=== PATIENT | female | born 1945 | race African-American/Black ===

== ENCOUNTER 2019-02-19 20:03 | Inpatient (IN) | payer MEDICARE, OTHER ==
[~2019-02-19] VITALS: Ht 152.4 cm; Wt 74.8 kg
--- NOTE | 2019-02-19 20:05 | NUR ---
ED Nurse Note: JAYSHREE MATT FROM HOME C/O ABDOMINAL PAIN X MORNING. HX HERNIA X2 YRS AND OVARIAN CA X1 YEAR. AO4. NAD. VSS. FAMILY AT BEDSIDE
--- NOTE | 2019-02-19 20:18 | NUR ---
ED Nurse Note: IV ACCESS ESTABLISHED. BLOOD COLLECTED; SENT DOWN TO LAB.
[2019-02-19] MEDS ORDERED: HUMULIN R100 UNIT/1 SUBQ (20:21)
[2019-02-19] MEDS ORDERED: METOPROLOL TART25 MG ORAL (20:21)
[2019-02-19] MEDS ORDERED: ASPIR 8181 MG ORAL (20:21)
[2019-02-19] MEDS ORDERED: DiphenhydrAMINE 50mg/ml Inj IVP ONE (20:30)
[2019-02-19] MEDS ORDERED: fentaNYL 100 mcg/2 mL IV ONE (20:30)
[2019-02-19] MEDS ORDERED: Isovue-300 100ml vial INJ PRN (20:30)
[2019-02-19] MEDS ORDERED: Metoclopramide 10mg/2ml Inj IVP ONE (20:30)
[2019-02-19 20:40] LABS: BASOPHILS % (AUTO) 0.8 % (0.0-2.0); EOSINOPHILS % (AUTO) 0.2 % (0.0-3.0); HEMATOCRIT 39.9 % (37.0-47.0); HEMOGLOBIN 13.6 G/DL (12.0-16.0); LYMPHOCYTES % (AUTO) 14.7 % (20.0-45.0); MEAN CORPUSCULAR VOLUME 87 FL (80-99); MONOCYTES % (AUTO) 3.3 % (1.0-10.0); NEUTROPHILS % (AUTO) 81.1 % (45.0-75.0); PLATELET COUNT 180 K/UL (150-450); RED BLOOD COUNT 4.61 M/UL (4.20-5.40); RED CELL DISTRIBUTION WIDTH 12.8 % (11.6-14.8); WHITE BLOOD COUNT 9.8 K/UL (4.8-10.8)
[2019-02-19 20:51] LABS: INR 1.1 (0.9-1.1)
[2019-02-19 20:53] LABS: ANION GAP 9 mmol/L (5-15); BLOOD UREA NITROGEN 24 mg/dL (7-18); CALCIUM 9.6 MG/DL (8.5-10.1); CARBON DIOXIDE 27 MMOL/L (21-32); CHLORIDE 97 MMOL/L (98-107); CREATININE 1.3 MG/DL (0.55-1.30); POTASSIUM 4.2 MMOL/L (3.5-5.1); SODIUM 133 MMOL/L (136-145)
[2019-02-19 21:00] LABS: ALANINE AMINOTRANSFERASE 31 U/L (12-78); ALBUMIN 3.7 G/DL (3.4-5.0); ALBUMIN/GLOBULIN RATIO 0.8 (1.0-2.7); ALKALINE PHOSPHATASE 147 U/L (46-116); ASPARTATE AMINO TRANSFERASE 21 U/L (15-37); BILIRUBIN,TOTAL 0.5 MG/DL (0.2-1.0)
--- NOTE | 2019-02-19 21:20 | NUR ---
ED Nurse Note: PT DOWN TO CT
--- NOTE | 2019-02-19 21:21 | Diagnostic Imaging Report ---
EXAM: XR Chest, 1 View CLINICAL HISTORY: Chest pain. TECHNIQUE: Frontal view of the chest. COMPARISON: No relevant prior studies available. FINDINGS: Lungs: Unremarkable. The lungs are clear. Pleural space: Unremarkable. No pneumothorax. Heart: Unremarkable. No cardiomegaly. Mediastinum: Unremarkable. Bones/joints: Mild degenerative changes of both shoulder joints. Vasculature: Mild calcification of the aortic arch. Tubes, lines and devices: Right-sided chest port with tip projecting over the cavoatrial junction. IMPRESSION: No acute findings.
--- NOTE | 2019-02-19 21:34 | NUR ---
ED Nurse Note: PT BACK FROM CT
[2019-02-19 21:40] VITALS: BP 157/84
--- NOTE | 2019-02-19 21:45 | NUR ---
ED Nurse Note: UNABLE TO COLLECT URINE. PT REFUSE STRAIGHT CATH. WILL ATTEMPT AT A LATER TIME.
--- NOTE | 2019-02-19 21:59 | Diagnostic Imaging Report ---
EXAM: CT Abdomen and Pelvis With Intravenous Contrast CLINICAL HISTORY: ABD PAIN TECHNIQUE: Axial computed tomography images of the abdomen and pelvis with intravenous contrast. CTDI is 17.20 mGy and DLP is 814 mGy-cm. One or more of the following dose reduction techniques were used: automated exposure control, adjustment of the mA and/or kV according to patient size, use of iterative reconstruction technique. COMPARISON: No relevant prior studies available. FINDINGS: Lung bases: Small calcified granuloma in the left lung base. ABDOMEN: Liver: Unremarkable. No mass. Gallbladder and bile ducts: The gallbladder is mildly distended with wall thickening and wall enhancement. There are gallstones, including within the gallbladder neck. Adjacent to the gallbladder fossa is a 4.6 x 2.10 cm cystic focus that measures greater Hounsfield units than simple fluid. No ductal dilation. Pancreas: Partial fatty replacement of the pancreas. Spleen: Unremarkable. No splenomegaly. Adrenals: Unremarkable. No mass. Kidneys and ureters: Right renal cortical scarring. No hydronephrosis. Stomach and bowel: Large midline anterior wall hernia containing a portion of the transverse colon. The transverse colon proximal to the hernia is dilated to 4.4 cm without evidence of obstruction. The portion of transverse colon within the hernia measures up to 3.9 cm with mild adjacent fat stranding and fluid. There is abrupt narrowing as it enters and exits the hernia. No mucosal thickening. PELVIS: Appendix: The appendix is mainly fluid-filled and mildly prominent, measuring up to 7 mm in diameter. There is no adjacent fat stranding. This is favored to represent a normal variant. Bladder: Mild diffuse bladder wall thickening is nonspecific but can be seen in cystitis. Reproductive: Unremarkable as visualized. ABDOMEN and PELVIS: Intraperitoneal space: Unremarkable. No free air. No significant fluid collection. Bones/joints: No acute fracture. Soft tissues: See above. Vasculature: Unremarkable. No abdominal aortic aneurysm. Lymph nodes: Unremarkable. No enlarged lymph nodes. IMPRESSION: 1. Large midline anterior wall hernia containing a portion of the transverse colon. The transverse colon proximal to the hernia is dilated to 4.4 cm without evidence of obstruction. The portion of transverse colon within the hernia measures up to 3.9 cm with mild adjacent fat stranding and fluid. There is abrupt narrowing as it enters and exits the hernia. This is nonspecific but can be seen with incarceration. 2. The appendix is mainly fluid-filled and mildly prominent, measuring up to 7 mm in diameter. There is no adjacent fat stranding. This is favored to represent a normal variant. Correlation with any signs/symptoms of appendicitis advised. 3. Mild diffuse bladder wall thickening is nonspecific but can be seen in cystitis. 4. The gallbladder is mildly distended with wall thickening and wall enhancement. There are gallstones, including within the gallbladder neck. This could be further characterized with ultrasound or HIDA scan as clinically indicated. 5. Adjacent to the gallbladder fossa is a 4.6 x 2.10 cm cystic focus that measures greater Hounsfield units than simple fluid. It is unclear if this represents a folded portion of the gallbladder or an independent hepatic cystic lesion. An independent cystic lesion is favored. Further characterization with MRI recommended.
--- NOTE | 2019-02-19 22:07 | NUR ---
ED Nurse Note: URINE COLLECTED; SENT DOWN TO LAB
[2019-02-19 22:11] LABS: APPEARANCE,URINE CLOUDY; BILIRUBIN, URINE NEGATIVE (NEGATIVE); COLOR,URINE PALE YELLOW; GLUCOSE, URINE (UA) 1+ (NEGATIVE); KETONES,URINE 2+ (NEGATIVE); LEUKOCYTE ESTERASE ,URINE 1+ (NEGATIVE); NITRITE,URINE NEGATIVE (NEGATIVE); PH,URINE 6 (4.5-8.0); PROTEIN,URINE 2+ (NEGATIVE); UROBILINOGEN,URINE NORMAL MG/DL (0.0-1.0)
--- NOTE | 2019-02-19 22:29 | NUR ---
TRANSFER TO FLOOR: Patient transferred to MED SURG 302-1 as ordered, per MD WU . Report given to ALEXANDRE MURILLO. PATIENT IN STABLE CONDITION. BELONGINGS LIST COMPLETED WITH RECEIVING RN; PT HAS NO BELONGINGS. ACCOMPANIED BY FAMILY MEMBER.
--- NOTE | 2019-02-19 22:32 | Emergency Room Report ---
History of Present Illness General Chief Complaint: Abdominal Pain Source: Patient Present Illness HPI The patient presents with abdominal pain by the umbilicus for couple days. She' s had a cough recently and all of a sudden the pain worsened in her abdomen. I radiates somewhat to from the right-hand outside of the abdomen into the abdomen with crampiness in severe pain episodically. She denies any fevers. The cough is been nonproductive. She's moved her bowels but is not passing as much gas as usual at this time. There is no dysuria. She had prior abdominal surgery in that area. She's been unable to eat for 2 days because of vomiting. The patient has a history of ovarian cancer post chemotherapy. 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 She has a Port-A-Cath. Recently I [facility] they told her she had some nodules in her lungs and are concerned about tumor spread to her lungs. The patient has diabetes. Her blood sugars of been controlled. There is a history of a non-STEMI The patient has adverse reaction to opiate medications. Allergies: Coded Allergies: GABAPENTIN (Verified Allergy, Unknown, 02/19/19) LOSARTAN (Verified Allergy, Unknown, 02/19/19) MORPHINE (Verified Allergy, Unknown, 02/19/19) Patient History Past Medical History: see triage record Past Surgical History: other - Ovarian cancer, Port-A-Cath Social History: Denies: smoking, alcohol use, drug use Social History Narrative with her son Now: No Reviewed Nursing Documentation: PMH: Agreed; PSxH: Agreed Nursing Documentation-PMH Hx Cardiac Problems: Yes - heart attack 4 years ago Hx Hypertension: Yes Hx COPD: Yes Hx Diabetes: Yes Hx Gastrointestinal Problems: Yes - Liver mass, GERD, Hernia 2 years ago, ovarian cancer Hx Cerebrovascular Accident: Yes - anemia Review of Systems All Other Systems: negative except mentioned in HPI Physical Exam Vital Signs Date Time Temp Pulse Resp B/P (MAP) Pulse Ox O2 Delivery O2 Flow Rate FiO2 02/19/19 19:58 97.7 87 18 157/84 (108) 99 Room Air Sp02 EP Interpretation: reviewed, normal General Appearance: alert, GCS 15, mild distress - Episodically with pain when increased, Chronically Ill Head: normocephalic, atraumatic Eyes: bilateral eye PERRL, bilateral eye conjunctivae pale ENT: moist mucus membranes Neck: full range of motion, supple Respiratory: lungs clear, normal breath sounds, other - Port-A-Cath right, occasional cough Gastrointestinal: normal bowel sounds, soft, non-distended, no rebound, guarding, tenderness - hernia, hernia - To the right of the umbilicus, tender and unable to be reduced, overweight Genitourinary: no CVA tenderness Neurologic: oriented x3, motor strength/tone normal, DTRs symmetric, sensory intact, grossly normal Psychiatric: mood/affect normal Skin: warm/dry, other - sallo, surgical scar abdomen Medical Decision Making Diagnostic Impression: Primary Impression: Incarcerated hernia of abdominal cavity Additional Impressions: H/O ovarian cancer UTI (urinary tract infection) Qualified Codes: N30.00 - Acute cystitis without hematuria Hyperglycemia ER Course Patient presents with abdominal pain vomiting and decreased passing of gas with a abdominal wall hernia that cannot be reduced. Differential includes incarcerated abdominal wall hernia, small bowel obstruction, adhesions, diverticulitis amongst others. The patient will be evaluated with EKG, chest x- ray and CT the abdomen and pelvis and labs. The patient will be treated with IV hydration and also given a dose of fentanyl. EKG without injury ST inversions inferior laterally rate 73. Chest x-ray with Port-A-Cath and possible occasional nodularity no infiltrates. White count normal. CMP Glucose 247 and elevated BUNs with normal renal function. Urinalysis with pyuria. CT with large anterior wall hernia containing a portion of the transverse colon. Proximal to the hernia there is dilatation without evidence of obstruction. Differential within the hernia measured 3.9 cm with mild fat stranding and fluid. Abrupt narrowing as it enters and exits the hernia. Antibiotics are begun for the UTI. Patient with decreased pain after fentanyl. Tolerated well. Patient admitted to Dr. Miles. Dr. Welsh notified. Laboratory Tests Test 02/19/19 20:17 02/19/19 22:00 White Blood Count 9.8 K/UL (4.8-10.8) Red Blood Count 4.61 M/UL (4.20-5.40) Hemoglobin 13.6 G/DL (12.0-16.0) Hematocrit 39.9 % (37.0-47.0) Mean Corpuscular Volume 87 FL (80-99) Mean Corpuscular Hemoglobin 29.5 PG (27.0-31.0) Mean Corpuscular Hemoglobin Concent 34.0 G/DL (32.0-36.0) Red Cell Distribution Width 12.8 % (11.6-14.8) Platelet Count 180 K/UL (150-450) Mean Platelet Volume 6.9 FL (6.5-10.1) Neutrophils (%) (Auto) 81.1 % (45.0-75.0) H Lymphocytes (%) (Auto) 14.7 % (20.0-45.0) L Monocytes (%) (Auto) 3.3 % (1.0-10.0) Eosinophils (%) (Auto) 0.2 % (0.0-3.0) Basophils (%) (Auto) 0.8 % (0.0-2.0) Prothrombin Time 11.2 SEC (9.30-11.50) Prothrombin Time INR 1.1 (0.9-1.1) PTT 27 SEC (23-33) Sodium Level 133 MMOL/L (136-145) L Potassium Level 4.2 MMOL/L (3.5-5.1) Chloride Level 97 MMOL/L (98-107) L Carbon Dioxide Level 27 MMOL/L (21-32) Anion Gap 9 mmol/L (5-15) Blood Urea Nitrogen 24 mg/dL (7-18) H Creatinine 1.3 MG/DL (0.55-1.30) Estimate Glomerular Filtration Rate mL/min (>60) Glucose Level 247 MG/DL (74-106) H Calcium Level 9.6 MG/DL (8.5-10.1) Total Bilirubin 0.5 MG/DL (0.2-1.0) Aspartate Amino Transferase (AST) 21 U/L (15-37) Alanine Aminotransferase (ALT) 31 U/L (12-78) Alkaline Phosphatase 147 U/L (46-116) H Troponin I 0.000 ng/mL (0.000-0.056) Total Protein 8.5 G/DL (6.4-8.2) H Albumin 3.7 G/DL (3.4-5.0) Globulin 4.8 g/dL Albumin/Globulin Ratio 0.8 (1.0-2.7) L Lipase 38 U/L (73-393) L Urine Color Pale yellow Urine Appearance Cloudy Urine pH 6 (4.5-8.0) Urine Specific Cucumber 1.010 (1.005-1.035) Urine Protein 2+ (NEGATIVE) H Urine Glucose (UA) 1+ (NEGATIVE) H Urine Ketones 2+ (NEGATIVE) H Urine Blood 3+ (NEGATIVE) H Urine Nitrite Negative (NEGATIVE) Urine Bilirubin Negative (NEGATIVE) Urine Urobilinogen Normal MG/DL (0.0-1.0) Urine Leukocyte Esterase 1+ (NEGATIVE) H Urine RBC Pending Urine WBC Pending Urine Squamous Epithelial Cells Pending Urine Bacteria Pending EKG Diagnostic Results Rate: normal Rhythm: NSR ST Segments: no acute changes - inferolateral T wave inversion Rhythm Strip Diag. Results EP Interpretation: yes Rhythm: NSR, no PVC's, no ectopy Chest X-Ray Diagnostic Results Chest X-Ray Diagnostic Results : Chest X-Ray Ordered: Yes # of Views/Limited/Complete: 1 View Indication: Other EP Interpretation: Yes Interpretation: no effusion, no pneumothorax, other - portacath and possible small nodules Impression: Other Electronically Signed by: Electronically signed by Yusuf Rodarte MD CT/MRI/US Diagnostic Results CT/MRI/US Diagnostic Results : Imaging Test Ordered: abd pelvis Impression CT with large anterior wall hernia containing a portion of the transverse colon. Proximal to the hernia there is dilatation without evidence of obstruction. Differential within the hernia measured 3.9 cm with mild fat stranding and fluid. Abrupt narrowing as it enters and exits the hernia. Last Vital Signs Date Time Temp Pulse Resp B/P (MAP) Pulse Ox O2 Delivery O2 Flow Rate FiO2 02/19/19 22:31 97.7 87 18 157/84 99 Room Air Status: improved Disposition: ADMITTED INPATIENT Condition: Serious Referrals: NON PHYSICIAN (PCP) Yusuf Rodarte MD Feb 19, 2019 22:32
--- NOTE | 2019-02-19 22:40 | NUR ---
pt admitted from ER VIA GURNEY ACCOMPANIED BY TRANSPOTER,AWAKE AND ALERT,ORIENTED X4 CALL LIGHT IN REACH TO PT,INSTRUCTED ROOM SURROUNDING.DIAGNOSID ABDOMINAL HERNIA,PT VOMITIND WITH LIQUID GREENISH SMALL AMOUNT . Addendum: 02/20/19 at 3504 by ANIL MURILLO RN at 0500;admitting diagnose ;abdominal hernia
[2019-02-19] MEDS ORDERED: Cefepime HCl 1 GM in D5W 55 ML IVPB ONE (22:45)
[2019-02-19 22:50] VITALS: BP 95/65
--- NOTE | 2019-02-20 | NUR ---
pt vomitted and incontinent of urine x1
[2019-02-20] MEDS ORDERED: METOPROLOL TART25 MG ORAL (00:40)
[2019-02-20] MEDS ORDERED: LATANOPROST 0.7.5 ML OP (00:45)
[2019-02-20] MEDS ORDERED: SPIRIVA INHALE1 PUF1 INH (00:46)
[2019-02-20] MEDS ORDERED: LANTUS SOL100 UNIT/1 SUBQ (00:46)
[2019-02-20] MEDS ORDERED: D5 1/2NS 1,000 ML IV SCH (01:15)
[2019-02-20] MEDS ORDERED: Hydromorphone 0.5mg/0.5ml inj IVP PRN (01:45)
--- NOTE | 2019-02-20 02:00 | NUR ---
pt and son want leave AGAINST MECICAL ADVICE, INFORMED RISK OF AGAINST MEDICAL ADVICE BY NURSING ARMORED TRANSPORT SERVICE MANAGER DONY RN TO PT AND SON ,DR.WIJE GRAVES NOTIFIED.IV SITE DISCONTINUED.
--- NOTE | 2019-02-20 02:35 | NUR ---
pt left with son against medical advice.
[2019-02-20] MEDS ORDERED: NovoLOG Insulin Flexpen SUBQ SCH (06:30)
[2019-02-20] MEDS ORDERED: Latanoprost 0.005% Opth 2.5ml Soln BOTH EYES SCH (21:00)
--- NOTE | 2019-02-23 08:47 | Discharge Summary ---
Discharge Summary Discharge Summary _ DATE OF ADMISSION: 02/19/2019 DATE OF DISCHARGE: 02/20/2019 Patient left AGAINST MEDICAL ADVICE REASON FOR ADMISSION: 73 years old female with past medical history of ovarian cancer, hypertension, heart attack (4 years ago ), COPD, diabetes mellitus, GERD, anemia, presented with abdominal pain , vomiting and decreased passing of gas . Upon evaluation patient was found to have abdominal wall hernia , that could not be reduced. CT of the abdomen and pelvis revealed large midline anterior wall hernia containing a portion of transverse colon. The transverse colon proximal to the hernia was dilated to 4.4 cm without evidence of obstruction. The portion of transverse colon within the hernia measured up to 3.9 cm with mild adjacent fat stranding and fluid. There was abrupt narrowing as it entered and exited the hernia. This was nonspecific, but can be seen with incarceration. Chest x-ray was unremarkable. It showed right sided Port-A-Cath. Laboratory work-up revealed no leukocytosis, stable hemoglobin and hematocrit. Troponin negative. EKG revealed sinus rhythm with ST inversion inferior laterally, no acute ischemic changes. Stable LFT. Glucose 247. BUN 24, creatinine 1.3. Sodium 133.no acute ischemic changes Urinalysis revealed pyuria and many bacteria. In the emergency department patient started on antibiotic for UTI and provided with analgesia. Surgeon was consulted. Patient was admitted to medical surgical floor for further management with diagnoses of incarcerated hernia of abdominal cavity, history of ovarian cancer , UTI, hyperglycemia. HOSPITAL COURSE: Patient admitted to medical surgical floor. Patient was kept n.p.o. and started on the IV fluids Pain management was addressed. Symptomatic treatment provided. Antiemetic were on board as needed. Patient had episode of emesis on the floor Sliding scale of insulin was ordered for management of hyperglycemia. Surgery evaluation was pending. Patient's son was at the bedside. Patient's son and patient decided to leave AGAINST MEDICAL ADVICE. The risks and consequences of signing AGAINST MEDICAL ADVICE were discussed with patient in detail. Patient verbalized understanding, nevertheless signed AMA form and left. FINAL DIAGNOSES: Incarcerated hernia of abdominal cavity Urinary tract infection History of ovarian cancer Diabetes mellitus with hyperglycemia I have been assigned to dictate discharge summary for this account. I was not involved in the patient's management. Lorraine Heredia NP Feb 23, 2019 08:47
--- NOTE | 2019-02-23 15:09 | Cardiology Report ---
APPROVED REPORT EKG Measurement Heart [id number] Normal sinus rhythm Septal infarct, age undetermined Possible Lateral infarct, age undetermined Abnormal ECG
== END 2019-02-20 02:30 | disposition left against medical advice (07) | DRG 394 ==
LOC: EDBD 20:03 → EMR 20:50 → 3E 21:10 → EDBEDREQ 21:57
DX: K45.0 Other specified abdominal hernia with obstruction, without gangrene (principal); N39.0 Urinary tract infection, site not specified; Z85.43 Personal history of malignant neoplasm of ovary; E11.65 Type 2 diabetes mellitus with hyperglycemia; I10 Essential (primary) hypertension; I25.2 Old myocardial infarction; J44.9 Chronic obstructive pulmonary disease, unspecified; K21.9 Gastro-esophageal reflux disease without esophagitis
CPT/HCPCS: 36415; 71045; 74177; 80053; 81003; 83690; 84484; 85025; 85610; 85730; 86850; 86900; 86901; 87086; 87181; 93005; 96361; 96365; 96368; 96375; 99285; J1815; J2765